=== PATIENT | male | born 1940 ===

== ENCOUNTER 2017-08-24 12:48 | Day surgery (SDC) | payer MEDICARE ==
[2017-08-24 13:18] VITALS: BP 160/73; PULSE 62; RESP 20; TEMP 98; O2SAT 91
[2017-08-24] MEDS ORDERED: CLOTCRE TOPICAL (13:24)
[2017-08-24] MEDS ORDERED: CARB25TA9 PO (13:24)
[2017-08-24] MEDS ORDERED: METF500T4 PO (13:24)
[2017-08-24] MEDS ORDERED: FLAR0.1S EACH EYE (13:24)
[2017-08-24] MEDS ORDERED: GABA400C5 PO (13:24)
[2017-08-24] MEDS ORDERED: ROSU1TAB8 PO (13:24)
[2017-08-24] MEDS ORDERED: CYCL10TA PO (13:24)
[2017-08-24] MEDS ORDERED: TRIA0.022 TOPICAL (13:24)
[2017-08-24] MEDS ORDERED: AMLO10TA2 PO (13:24)
[2017-08-24] MEDS ORDERED: ERGO2000 PO (13:24)
[2017-08-24] MEDS ORDERED: METO1TAB43 PO (13:24)
[2017-08-24] MEDS ORDERED: LISI10TA3 PO (13:24)
[2017-08-24] MEDS ORDERED: BUME1TAB PO (13:24)
[2017-08-24] MEDS ORDERED: SULF1TAB23 PO (13:24)
[2017-08-24 15:10] VITALS: BP 161/82; PULSE 63; RESP 18; O2SAT 93
--- NOTE | 2017-08-24 15:14 | PD.RAD ---
Post Procedure Progress Note Pre Procedure Diagnosis: (1) PLEATER (ventriculoperitoneal) shunt status Post Procedure Diagnosis: (1) PLEATER (ventriculoperitoneal) shunt status Procedure Date: August 24, 2017 Supervising Radiologist: Rick Jack Proceduralist/Assist: RT Jonatan(Farideh), Other (Daron) Anesthesia: Local Plan of Activity Patient to Unit: [facility]OP[facility] Patient Condition: Good See PACS Report for procedural detail/treatment Imaging Evaluation Shuntogram Findings: Shunt is patent Rick Jack MD August 24, 2017 15:14
--- NOTE | 2017-08-24 15:19 | RADRPT ---
EXAM DATE/TIME: 08/24/2017 14:43 [facility] COMPARISON: No previous studies available for comparison. INDICATIONS : Patient presents with non funtioning shunt. 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 Fluoroscopically guided shuntogram. The risks, benefits and alternatives to the procedure were explained and verbal and written consent w as obtained. The site was prepped in sterile fashion. Full sterile technique was used, including ca p, mask, sterile gloves and gown and a large sterile sheet. Hand hygiene and 2% chlorhexidine and/or betadine/alcohol prep was utilized per protocol for cutaneous antisepsis. The skin and subcutaneous tissues were infiltrated with local anesthetic solution. With fluoroscopic guidance the previously placed shunt was injected with a 23 gauge butterfly needle and positive contrast was injected. Shunt reservoir filled normally with free reflux into the ventricles. Shunt tubing appear to be gross ly intact. With repeated pumping of the reservoir, there was opacification of the peritoneal portion of the catheter with extravasation distally into the peritoneal cavity. The extravasation emanated pr oximal to the catheter tip probably representing multiple side ports in this location. CONCLUSION: Shunt catheter appears to be patent throughout. Rick Jack MD on August 24, 2017 at 15:13 Board Certified Radiologist. This report was verified electronically.
[2017-08-24 15:50] VITALS: BP 155/77; PULSE 62; RESP 18; TEMP 97.9; O2SAT 94
--- NOTE | 2017-08-24 16:06 | RADRPT ---
EXAM DATE/TIME: 08/24/2017 15:28 [facility] COMPARISON: No previous studies available for comparison. INDICATIONS : Evaluate shunt position. MEDICAL HISTORY : Renal calculi. Diabetes. SURGICAL HISTORY : Kidney stent. ENCOUNTER: Initial ACUITY: 4 - 6 months PAIN SCORE: 0/10 LOCATION: Skull to abdomen. FINDINGS: Shunt entering from the left with focal approach. Shunt tubing intact. Tip is coiled in the left mi dabdomen and may be kinked back on itself. CONCLUSION: Intact shunt. 10 cm of the distal limb appear to be kinked. Anam Villalpando MD FACR on August 24, 2017 at 16:02 Board Certified Radiologist. This report was verified electronically.
== END 2017-08-24 16:05 | disposition home or self-care (01) ==
LOC: HROP 12:48 → HRIP 12:56 → HROP 16:05
PROVIDERS: ATTEND Neurological Surgery
DX: G91.2 (Idiopathic) normal pressure hydrocephalus (principal); I10 Essential (primary) hypertension; K21.9 Gastro-esophageal reflux disease without esophagitis; E11.9 Type 2 diabetes mellitus without complications; Z98.2 Presence of cerebrospinal fluid drainage device; Z87.442 Personal history of urinary calculi
CPT/HCPCS: 61070; 70250; 71045; 72040; 74018; 75809